=== PATIENT | female | born 1970 | race African-American/Black ===

== ENCOUNTER 2016-06-11 14:30 | Emergency (ER) | payer MEDICAID ==
[~2016-06-11] VITALS: Ht 165.1 cm; Wt 81.6 kg
[~2016-06-11 14:30] MED LIST: AMLO5TAB4 PO
[2016-06-11 14:38] VITALS: BP 149/86
== END 2016-06-11 15:24 | disposition home or self-care (01) ==
LOC: EDUNIT# 14:30 → ER 14:31
DX: R20.9 Unspecified disturbances of skin sensation (principal); R07.9 Chest pain, unspecified; I10 Essential (primary) hypertension; Z88.8 Allergy status to other drugs, medicaments and biological substances
CPT/HCPCS: A4606; Z7610

== ENCOUNTER 2017-12-07 18:39 | Emergency (ER) | payer MEDICAID ==
[~2017-12-07] VITALS: Ht 165.1 cm; Wt 91.6 kg
--- NOTE | 2017-12-07 18:45 | NUR ---
BIBSELF C/O HIGH BP; NECK PAIN X 6 MONTHS. NEEDS MEDICATION REFILL , ATTACHED TO MONITOR , WILL CONTINUE TO MONITOR
--- NOTE | 2017-12-07 19:04 | NUR ---
Patient discharged to home in stable condition. Written and verbal after care instructions given. Patient verbalizes understanding of instruction.
[2017-12-07 19:05] VITALS: BP 145/56
== END 2017-12-07 19:06 | disposition home or self-care (01) ==
LOC: ER 18:42
DX: I10 Essential (primary) hypertension (principal); F10.10 Alcohol abuse, uncomplicated; Y90.9 Presence of alcohol in blood, level not specified; Z88.8 Allergy status to other drugs, medicaments and biological substances; Z60.2 Problems related to living alone; Z76.0 Encounter for issue of repeat prescription
CPT/HCPCS: 99283; A4606; Z7610

== ENCOUNTER 2018-12-25 21:59 | Emergency (ER) | payer MEDICAID ==
[~2018-12-25] VITALS: Ht 162.6 cm; Wt 88.5 kg
--- NOTE | 2018-12-25 22:05 | NUR ---
"bibs. c/o dizzyness while driving. surrounding spinning. denies n/v, headache, l upper chest pain x several months non radiating" PT AAOX4, -SOB, NAD NOTED, VSS, PENDING MD H[facility]IL[place]
[2018-12-25] MEDS ORDERED: ONDANSETRON HCL/PF 4 MG/2 ML VIAL ONE (22:25)
[2018-12-25] MEDS ORDERED: IV NS 0.9% 500 ML BAG IV ONE (22:30)
[2018-12-25] MEDS ORDERED: ONDANSETRON HCL/PF 4 MG/2 ML VIAL IVP ONE (22:30)
[2018-12-25] MEDS ORDERED: KETOROLAC TROMETHAMINE INJ 30 MG/ML VIAL ONE (22:41)
[2018-12-25 22:52] LABS: BASOPHILS # (AUTO) 0.2 /CMM (0.0-0.2); BASOPHILS % (AUTO) 1.7 % (0.0-2.0); EOSINOPHILS % (AUTO) 2.7 % (0.0-6.0); HEMATOCRIT 39 % (33-45); HEMOGLOBIN 12.6 g/dL (11.5-14.8); LYMPHOCYTES # (AUTO) 2.4 /CMM (0.8-4.8); LYMPHOCYTES % (AUTO) 25.4 % (20.0-44.0); MEAN CORPUSCULAR HGB CONC 33 g/dl (31.0-36.0); MEAN CORPUSCULAR VOLUME 84 fL (82-100); MONOCYTES # (AUTO) 0.7 /CMM (0.1-1.30); MONOCYTES % (AUTO) 7.1 % (2.0-12.0); NEUTROPHILS # (AUTO) 5.8 /CMM (1.8-8.9); NEUTROPHILS % (AUTO) 63.1 % (43.0-81.0); PLATELET COUNT (AUTO) 341 /CMM (150-450); RED BLOOD CELL COUNT(AUTO) 4.58 MIL/uL (4.0-5.2); WHITE BLOOD COUNT (AUTO) 9.3 K/uL (4.3-11.0)
[2018-12-25] MEDS ORDERED: KETOROLAC TROMETHAMINE INJ 30 MG/ML VIAL IV ONE (23:00)
[2018-12-25 23:09] LABS: CALCIUM, SERUM 9.2 mg/dL (8.5-10.1); CARBON DIOXIDE 28 mmol/L (21-32); CHLORIDE 102 mmol/L (98-107); CREATININE 1.1 mg/dL (0.6-1.3); GLUCOSE 93 mg/dL (74-106); SODIUM SERUM 136 mmol/L (136-145); UREA NITROGEN, BLOOD 18 mg/dL (7-18)
[2018-12-25 23:15] LABS: ALANINE AMINOTRANSFERASE 20 U/L (12-78); ALBUMIN 3.2 g/dL (3.4-5.0); ALKALINE PHOSPHATASE 63 U/L (46-116); ASPARTATE AMINOTRANSFERASE 14 U/L (15-37); BILIRUBIN,TOTAL 0.3 mg/dL (0.2-1.0)
--- NOTE | 2018-12-26 00:04 | NUR ---
Patient discharged to home in stable condition. Written and verbal after care instructions given. Patient verbalizes understanding of instruction. IV removed. Catheter intact and site benign. Pressure and 4x4 applied to site. No bleeding noted.
[2018-12-26 00:06] VITALS: BP 155/92
== END 2018-12-26 00:08 | disposition home or self-care (01) ==
LOC: ER 21:59
DX: R42 Dizziness and giddiness (principal); I10 Essential (primary) hypertension; Z88.8 Allergy status to other drugs, medicaments and biological substances; Z60.2 Problems related to living alone; Z79.899 Other long term (current) drug therapy
CPT/HCPCS: 36415; 70450; 71045; 80048; 80076; 84484; 84703; 85025; 85730; 93005; 96374; 96375; 99284; J1885; J2405; J7040